=== PATIENT | male | born 1990 | race Caucasian/White ===

== ENCOUNTER 2020-03-08 14:12 | Emergency (ER) | payer SELFPAY ==
[~2020-03-08] VITALS: Ht 172.7 cm; Wt 72.0 kg
[2020-03-08 14:40] VITALS: BP 127/68
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
== END 2020-03-08 14:54 | disposition home or self-care (01) ==
LOC: ER 14:21
DX: Z48.01 Encounter for change or removal of surgical wound dressing (principal)
CPT/HCPCS: 99281